=== PATIENT | male | born 1980 | race Caucasian/White ===

== ENCOUNTER 2018-01-23 15:38 | Emergency (ER) | payer OTHER ==
[~2018-01-23] VITALS: Ht 200.7 cm; Wt 113.6 kg
[~2018-01-23 15:38] MED LIST: AUGM875T PO
[2018-01-23 15:52] VITALS: BP 139/86; PULSE 110; RESP 18; TEMP 98.2; O2SAT 99
[2018-01-23 15:58] VITALS: BP 139/86; PULSE 110; RESP 18; TEMP 98.2; O2SAT 99
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
--- NOTE | 2018-01-23 16:21 | RADRPT ---
EXAM DATE: 01/23/2018 4:19 PM EDT AGE/SEX: 37 years / Male INDICATIONS: Right knee pain. Patient fell at work today. Pain on lateral side. CLINICAL DATA: This is the patient's initial encounter. Patient reports that signs and symptoms have been present for 1 day and indicates a pain score of 5/10. MEDICAL/SURGICAL HISTORY: None. None. COMPARISON: No prior exams available for comparison. FINDINGS: Bony structures are intact and in normal alignment. Joints are intact without dislocation or signifi cant arthropathy. Osseous density is normal. Soft tissues are unremarkable. No radiopaque foreign bodies seen. CONCLUSION: No evidence of recent bony injury. Electronically signed by: Jameson Quispe MD 01/23/2018 4:20 PM EDT
--- NOTE | 2018-01-23 17:32 | RADRPT ---
EXAM DATE: 01/23/2018 5:20 PM EDT AGE/SEX: 37 years / Male INDICATIONS: Trauma. CLINICAL DATA: This is the patient's initial encounter. Patient reports that signs and symptoms have been present for 1 day and indicates a pain score of 3/10. MEDICAL/SURGICAL HISTORY: Cardiovascular disease. CABG. COMPARISON: No prior exams available for comparison. TECHNIQUE: Multiplanar, multisequence MRI examination was performed without contrast. FINDINGS: There is a bone contusion and nondisplaced fracture through the lateral tibial plateau. Also suspect minimal contusion of the lateral patella. Small joint effusion present. Mild chondromalacia at the pa tellofemoral joint. The cruciate and collateral ligaments are intact. CONCLUSION: 1. Bone contusion and nondisplaced fracture through the lateral tibial plateau. Minimal bone contusi on lateral patella. Cruciate and collateral ligaments intact. Tiny Geronimo's cyst. Electronically signed by: George Purcell MD 01/23/2018 5:31 PM EDT
[2018-01-23] MEDS ORDERED: IBUP1TAB7 PO (18:00)
[2018-01-23] MEDS ORDERED: NORC5TAB PO (18:00)
== END 2018-01-23 18:16 | disposition home or self-care (01) ==
LOC: NEDAMB 15:38 → NEPD 18:16
DX: S82.144A Nondisplaced bicondylar fracture of right tibia, initial encounter for closed fracture (principal); E11.9 Type 2 diabetes mellitus without complications; E78.00 Pure hypercholesterolemia, unspecified; X50.1XXA Overexertion from prolonged static or awkward postures, initial encounter; Y93.89 Activity, other specified; Y99.0 Civilian activity done for income or pay
CPT/HCPCS: 73564; 73721; 99284; E0113; L1830